=== PATIENT | female | born 1970 | race Caucasian/White ===

== ENCOUNTER 2023-05-27 01:14 | Day surgery (SDC) | payer BC, SELFPAY ==
[2023-05-19 10:10] VITALS: BMI 24.7
[2023-05-27 07:41] VITALS: BP 126/77; PULSE 64; RESP 16; TEMP 35.7; O2SAT 100
[2023-05-27] MEDS: LACTATED RINGERS 1,000 ML 150 ML IV CONT (07:49)
--- NOTE | 2023-05-27 08:02 | WPDANESEPPF ---
Anes - Initial Pre Proc Eval Procedure: Operation Date: 05/27/23 08:30 Proposed Procedures p Colonoscopy - Bill Tejada MD Date/Time: 05/27/23 08:02 Surgeon: Bill Tejada MD Pre Op Diagnosis: hx colon polyps Patient Data Age: 52 Gender: F Height: 1.6 m Weight: 64.6 kg Last Vital Signs Temp 96.2 F L 05/27/23 07:41 Pulse 64 05/27/23 07:41 Resp 16 05/27/23 07:41 BP 126/77 05/27/23 07:41 Pulse Ox 100 05/27/23 07:41 O2 Del Method Room Air 05/27/23 07:41 Allergies Allergy/AdvReac Type Severity Reaction Status Date / Time lobster Allergy Severe Anaphylaxis Verified 05/27/23 07:40 Penicillins Allergy Intermediate Rash Verified 05/27/23 07:40 Home Medications Medication Instructions Recorded Confirmed Type amlodipine 5 mg tablet 5 mg PO DAILY 03/31/23 05/27/23 History meloxicam 15 mg tablet 15 mg PO DAILY PRN Pain 03/31/23 05/27/23 History albuterol sulfate 90 mcg/actuation 1 puff inhalation Q4H PRN 05/10/23 05/27/23 Rx aerosol inhaler shortness of breath or wheezing #8.5 grams Patient hx anesthesia problems: none Family hx anesthesia problems: none Results Review: All pre-operative results and documents have been reviewed as part of the pre-operative evaluation. 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 Hypertension Lumbar disc disease Polyp of colon Scoliosis Surgical History Surgical History H/O oophorectomy Previous section Family History Family History (Updated 03/31/23 @ 09:39 by Dolores Sarkar CMA) Sibling Diabetes mellitus Social History Social History (Updated 03/31/23 @ 09:38 by Dolores Sarkar CMA) Smoking packs per day: 0.5 Smoking cigarettes per day: 10.0 Years smoked: 10 Smoking pack-years: 5.00 Smoking status: Former smoker Tobacco type: cigarettes Second hand tobacco smoke exposure: No Alcohol intake: current Drinks per week: 5 Alcohol use details: WINE Substance use: never Substance use type: does not use Lack of Transportation: No Lack of Food: Never True Current Housing: I Have Housing Concerned About Future Housing: No Difficulty Paying Gas/Electric Bills: No Difficulty Paying for Meds: No Currently Unemployed: No Education: Bachelor's Degree Difficulty w/ Childcare or Family Care: No Living arrangements: with family Occupation/Education: occupation Gender identity (if verbalized by the patient): Female Spiritual care concerns: No Anes - Eval Final PreProcedure Day of Procedure 05/27/23 08:02 Patient weight: normal Heart: regular rate and rhythm Lungs: clear to auscultation Airway: Mallampati scale class II Neurological: alert and oriented Last oral intake: >/= 8 hours ASA classification: II Emergent: no Anesthetic plan: proceed Anesthesia type and monitoring: general GIVS and standard monitoring Results Review: All pre-operative results and documents have been reviewed as part of the pre-operative evaluation. Informed Consent: The patient's anesthetic plan and its attendant risks and benefits were discussed with the patient/family/POA. Questions were solicited and answers provided to the satisfaction of the patient/family/POA.
--- NOTE | 2023-05-27 08:27 | PM.HPGS ---
History of Present Illness History of Present Illness Consent: Risks, benefits, and alternatives have been discussed and questions answered. Patient agrees to proceed with procedure. Chief complaint: hx colon polyps Narrative: Kelley Lanier is a 52 year old female with several polyps removed 07/2022 in [place] (largest in rectosigmoid, also used tattoo), besides she had 2 previous colonoscopies with polyps. Review of Systems Constitutional: Constitutional: Denies headache(s) and Denies weakness Eyes: Eyes: Denies blurry vision ENT: Reports Normal hearing present, Denies headache(s) and Denies neck pain Cardiovascular: Cardiovascular: Denies chest pain and Denies dyspnea Respiratory: Respiratory: Denies dyspnea Gastrointestinal: Gastrointestinal: Reports no additional gastrointestinal complaints Genitourinary: Genitourinary: Denies dysuria Musculoskeletal: Musculoskeletal: Denies neck pain Integumentary/Breasts: Skin/Breast: Denies dry skin Neurologic: Reports Normal hearing present, Denies headache(s) and Denies weakness Psychiatric: Psychiatric: Denies anxiety Endocrine: Endocrine: Denies change in body appearance Hematologic/Lymphatic: Hematologic/Lymphatic: Denies easy bleeding Allergic/Immunologic: Allergic/Immunologic: Denies urticaria PMF Past Medical History Medical History (Updated 03/31/23 @ 12:38 by Krysta Gutierrez PA-C) 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 Hypertension Lumbar disc disease Polyp of colon Scoliosis Surgical History Surgical History H/O oophorectomy Previous section Family History Family History (Updated 03/31/23 @ 09:39 by Dolores Sarkar CMA) Sibling Diabetes mellitus Social History Social History (Updated 03/31/23 @ 09:38 by Dolores Sarkar CMA) Smoking packs per day: 0.5 Smoking cigarettes per day: 10.0 Years smoked: 10 Smoking pack-years: 5.00 Smoking status: Former smoker Tobacco type: cigarettes Second hand tobacco smoke exposure: No Alcohol intake: current Drinks per week: 5 Alcohol use details: WINE Substance use: never Substance use type: does not use Lack of Transportation: No Lack of Food: Never True Current Housing: I Have Housing Concerned About Future Housing: No Difficulty Paying Gas/Electric Bills: No Difficulty Paying for Meds: No Currently Unemployed: No Education: Bachelor's Degree Difficulty w/ Childcare or Family Care: No Living arrangements: with family Occupation/Education: occupation Gender identity (if verbalized by the patient): Female Spiritual care concerns: No Meds Home Medications and Allergies Home Medications Medication Instructions Recorded Confirmed Type amlodipine 5 mg tablet 5 mg PO DAILY 03/31/23 05/27/23 History meloxicam 15 mg tablet 15 mg PO DAILY PRN Pain 03/31/23 05/27/23 History albuterol sulfate 90 mcg/actuation 1 puff inhalation Q4H PRN 05/10/23 05/27/23 Rx aerosol inhaler shortness of breath or wheezing #8.5 grams Allergies Allergy/AdvReac Type Severity Reaction Status Date / Time lobster Allergy Severe Anaphylaxis Verified 05/27/23 07:40 Penicillins Allergy Intermediate Rash Verified 05/27/23 07:40 Vital Signs Vital Signs - 24 hr 05/27/23 07:41 Temperature 96.2 F L Pulse Rate 64 Respiratory Rate 16 Blood Pressure 126/77 Pulse Oximetry 100 Oxygen Delivery Room Air Exam Const: General: comfortable and no acute distress HENMT: Face/Nose/Sinus: Normal nares present Eyes: General: appearance normal, both eyes and all related structures Neck: Neck: no JVD Resp: Auscultation: clear to auscultation bilaterally Cardio: Rate: regular rate Rhythm: regular rhythm GI: Inspection: non-distended GI Palp: Yes Soft to palpation Skin: General skin exam: normal color Neuro: General: gait normal Speech: normal
[2023-05-27 08:40] VITALS: BP 112/70; PULSE 68; RESP 14; O2SAT 100
[2023-05-27 08:50] VITALS: BP 122/83; PULSE 64; RESP 24; O2SAT 100
[2023-05-27 09:00] VITALS: BP 131/85; PULSE 59; RESP 21; O2SAT 99
== END 2023-05-27 09:07 | disposition home or self-care (01) ==
PROVIDERS: PCP Family Medicine; Visit Provider Internal Medicine Gastroenterology
PROC: 0DJD8ZZ Inspection of Lower Intestinal Tract, Via Natural or Artificial Opening Endoscopic (ICD-10-PCS; CPT 45378; principal; 2023-05-27 08:30)
DX: Z12.11 Encounter for screening for malignant neoplasm of colon (principal); D12.3 Benign neoplasm of transverse colon; K57.30 Diverticulosis of large intestine without perforation or abscess without bleeding; I10 Essential (primary) hypertension; Z79.51 Long term (current) use of inhaled steroids; Z87.891 Personal history of nicotine dependence
CPT/HCPCS: 45385; 88305; J2704; J7120

== ENCOUNTER → 2023-07-11 16:33 | Outpatient (CLI) | payer BC, SELFPAY ==
--- NOTE | ~2023-07-11 | XR_ITS ---
EXAMINATION: XR chest 2V Exam Date/Time: 07/11/2023 16:47 CDT HISTORY: R05.3 - Chronic cough Comparison: None. RESULT: Lines, tubes, and devices: None. Lungs and pleura: Diffuse reticular opacities. 2.4 cm nodular opacity projecting adjacent to the rig ht heart border without any correlate identified in the lateral view. Cardiomediastinal silhouette: Unremarkable. Other: No acute osseous or upper abdominal finding. IMPRESSION: Nodular opacity projecting adjacent to the right heart border. Comparison to outside studies can be m michael if available, otherwise consider low-dose noncontrast CT of the chest for further evaluation. Diffuse interstitial opacities may represent mild initial edema versus respiratory bronchiolitis Reviewed, dictated and finalized at location K. IMPRESSION: Nodular opacity projecting adjacent to the right heart border. Comparison to ou tside studies can be made if available, otherwise consider low-dose noncontrast CT of the chest for further evaluation. Diffuse interstitial opacities may represent mild initial edema versus respirat ory bronchiolitis
== END ==
PROVIDERS: PCP Physician Assistant Medical; Visit Provider Physician Assistant Medical
DX: R05.3 Chronic cough (principal); R91.8 Other nonspecific abnormal finding of lung field
CPT/HCPCS: 71046

== ENCOUNTER → 2023-07-14 09:51 | Outpatient (CLI) | payer BC, SELFPAY ==
--- NOTE | ~2023-07-14 | CT_ITS ---
EXAMINATION: CT diagnostic chest w con DATE: 07/14/2023 10:26 INDICATION: Chronic cough, lung nodule TECHNIQUE: Transaxial computed tomographic images of the chest were obtained after the administration of 75 cc of Omnipaque 350 intravenous contrast. The dose-length product (DLP) was 193.40 mGy-cm. Ite rative reconstruction was used. COMPARISON: 07/11/2023 FINDINGS: There is a prominent fat pad abutting the right heart which accounts for the finding in que stion on the comparison radiograph. There is a 3 mm nodule of the lingula. There is a 3 mm nodule of the right upper lobe. No pathologically enlarged thoracic lymph nodes are identified. The heart size is normal. There is moderate thoracic spondylosis. There is severe atrophy of the right kidney. IMPRESSION: 1. Prominent fat pad abutting the right heart border accounting for the radiographic finding in quest ion. 2. Small pulmonary nodules, likely old granulomatous disease. Reviewed, dictated and finalized at location F. IMPRESSION: 1. Prominent fat pad abutting the right heart border accounting for the radiogr aphic finding in question. 2. Small pulmonary nodules, likely old granulomatous disease.
== END ==
PROVIDERS: PCP Physician Assistant Medical; Visit Provider Physician Assistant Medical
DX: R05.3 Chronic cough (principal); R91.8 Other nonspecific abnormal finding of lung field
CPT/HCPCS: 71260; Q9967

== ENCOUNTER → 2023-10-03 12:49 | Outpatient (CLI) | payer BC, SELFPAY ==
--- NOTE | ~2023-10-03 | US_ITS ---
Renal-Bladder ultrasound Clinical History: Right renal atrophy Technique: Real-time sonographic imaging of the kidneys and urinary bladder was performed. Findings: The right kidney measures 6.6 cm in length and the left kidney measures 13.5 cm. There is n o hydronephrosis or renal calculus identified. Renal cortical echogenicity is within normal limits. N o renal mass lesion is identified. The urinary bladder is moderately distended at the time of this exam. No intraluminal echoes are iden tified. No abnormal wall thickening is seen. Impression: Relatively atrophic right kidney as compared to the left. No hydronephrosis. Reviewed, dictated and finalized at location . RNATIONAL GUEST COORDINATOR Impression: Relatively atrophic right kidney as compared to the left. No hydronephrosis.
== END ==
PROVIDERS: PCP Physician Assistant Medical; Visit Provider Internal Medicine Nephrology
DX: N26.1 Atrophy of kidney (terminal) (principal)
CPT/HCPCS: 76775

== ENCOUNTER 2024-02-22 13:30 | Emergency (ER) | payer BC, SELFPAY ==
--- NOTE | ~2024-02-22 | XR_ITS ---
EXAMINATION: XR chest 2V DATE: 02/22/2024 13:57 INDICATION: Chest congestion. Cough. TECHNIQUE: Frontal and lateral views of the chest were obtained. COMPARISON: Chest 2 views 07/11/2023, chest CT 07/14/2023 FINDINGS: There is no pneumonia, pleural effusion, or pneumothorax. The heart size is normal. IMPRESSION: 1. No acute cardiopulmonary disease. Reviewed, dictated and finalized at location A.
--- NOTE | 2024-02-22 13:35 | ED.URI ---
HPI - URI/Sore Throat General Chief Complaint: Upper Respiratory Infection Stated Complaint: congested Source: patient and RN notes reviewed Mode of arrival: ambulatory Limitations: no limitations History of Present Illness HPI Narrative: Patient is a 53-year-old female who presents to the [facility] with complaints of chest congestion, cough, and wheezing for the last couple days. She states that her daughter also has cold symptoms with congestion and cough. She reports ongoing chest congestion that continues to worsen. She denies chest pain but reports soreness from coughing. Denies difficulty breathing or shortness of breath. She woke up wheezing this morning and took an albuterol at home which helped. She also states that she has a mild sore throat. She denies recent fevers. Related Data Allergies Allergy/AdvReac Type Severity Reaction Status Date / Time lobster Allergy Severe Anaphylaxis Verified 02/22/24 13:38 Penicillins Allergy Intermediate Rash Verified 02/22/24 13:38 Review of Systems Review of Systems: CONSTITUTIONAL: Denies fever, chills, or sweats. EYES: Denies visual changes, redness, or discharge. ENT: Denies otalgia. Reports sore throat. CARDIOVASCULAR: Denies chest pain, palpitations, or edema. RESPIRATORY: Reports wheezing and cough but denies dyspnea. GASTROINTESTINAL: Denies abdominal pain, nausea, vomiting, or diarrhea. GENITOURINARY: Denies dysuria or hematuria. SKIN: Denies rash or itching. MUSCULOSKELETAL: Denies back pain, joint pain, or myalgia. NEUROLOGIC: Denies headache, numbness, or weakness. Pertinent positives per HPI. 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 Hypertension Lumbar disc disease Polyp of colon Scoliosis Surgical History Surgical History H/O oophorectomy Previous section Family History Family History Sibling Diabetes mellitus Social History Social History Smoking packs per day: 0.5 Smoking cigarettes per day: 10.0 Years smoked: 10 Smoking pack-years: 5.00 Smoking status: Former smoker Tobacco type: cigarettes Second hand tobacco smoke exposure: No Alcohol intake: current Drinks per week: 5 Alcohol use details: WINE Substance use: never Substance use type: does not use Lack of Transportation: No Lack of Food: Never True Current Housing: I Have Housing Concerned About Future Housing: No Difficulty Paying Gas/Electric Bills: No Difficulty Paying for Meds: No Currently Unemployed: No Education: Bachelor's Degree Difficulty w/ Childcare or Family Care: No Living arrangements: with family Occupation/Education: occupation Gender identity (if verbalized by the patient): Female Spiritual care concerns: No Comments At the time of my signature, I reviewed and agree with the nursing past medical, surgical, social, and family history. There is no relevant family history pertinent to the patient complaint. Exam Narrative: GENERAL: This is a well-nourished, well-developed patient, in no apparent distress. HEAD: normocephalic, atraumatic. EYES: PERRL. Sclera clear/white. Vision is grossly intact. EARS: External ears normal, auditory canals clear and without drainage, TMs normal without perforation. Hearing grossly intact. NOSE: External nose normal with no obvious nasal discharge, nares without redness, no rhinorrhea. THROAT: Mucous membranes moist, posterior pharynx clear. NECK: Neck supple, non-tender without lymphadenopathy, masses or thyromegaly. CARDIOVASCULAR: Regular rate and rhythm without murmurs, gallops, or rubs. RESPIRATORY: Clear to auscultation. Breath sounds equal bilaterally. No wheezes,
[2024-02-22 13:40] VITALS: BP 130/90; PULSE 68; RESP 16; TEMP 37; O2SAT 100
== END 2024-02-22 14:08 | disposition home or self-care (01) ==
PROVIDERS: Emergency Provider Nurse Practitioner; PCP Family Medicine
DX: J20.8 Acute bronchitis due to other specified organisms (principal); Z87.891 Personal history of nicotine dependence; I10 Essential (primary) hypertension; M51.36 Other intervertebral disc degeneration, lumbar region; M41.9 Scoliosis, unspecified
CPT/HCPCS: 71046; 99213; G0463

== ENCOUNTER 2024-04-13 11:38 | Outpatient (CLI) | payer BC, SELFPAY ==
--- NOTE | ~2024-04-13 | MM_ITS ---
EXAMINATION: MM screening meliton BI w arturo HISTORY: Screening TECHNIQUE: Craniocaudal and mediolateral oblique 3-D tomosynthesis images were obtained and synthetic 2-D images were generated. CAD analysis was submitted and interpreted. COMPARISON: No prior mammogram is available for comparison at this institution. BREAST PARENCHYMAL COMPOSITION: There are scattered areas of fibroglandular density. FINDINGS: There is no evidence of suspicious mass, calcification, or architectural distortion to sugg est malignancy in either breast. There has been no suspicious interval change. IMPRESSION: 1. No mammographic evidence of malignancy. 2. Recommend routine screening mammography in one year. BI-RADS Category 1: Negative Reviewed, dictated and finalized at location B.
== END 2024-04-13 11:39 | disposition home or self-care (01) ==
LOC: CHSIMG 11:39
PROVIDERS: PCP Family Medicine; Visit Provider Physician Assistant Medical
DX: Z12.31 Encounter for screening mammogram for malignant neoplasm of breast (principal)
CPT/HCPCS: 77063; 77067

== ENCOUNTER 2024-04-16 10:08 | Outpatient (CLI) | payer BC, SELFPAY ==
--- NOTE | ~2024-04-16 | XR_ITS ---
XR wrist RT min 3V Ordering provider: Eric Brown MD History: . M25.531 - Pain in right wrist, RADIAL SIDE PAIN, NO INJURY . Comparison: None. FINDINGS: BONES: No acute fracture or dislocation. No definite scaphoid fracture. 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 SOFT TISSUES: Normal. IMPRESSION: No acute osseous abnormality right wrist. 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 Reviewed, dictated and finalized at location A. IMPRESSION: No acute osseous abnormality right wrist. Osteoarthritic changes of the trapezioscaphoid and first carpometacarpal joints .
== END 2024-04-16 10:09 | disposition home or self-care (01) ==
LOC: ANHIMG 10:09
PROVIDERS: PCP Family Medicine; Visit Provider Plastic Surgery
DX: M19.031 Primary osteoarthritis, right wrist (principal)
CPT/HCPCS: 73110

== ENCOUNTER 2024-06-05 14:00 | Outpatient (RCR) | payer BC, SELFPAY ==
--- NOTE | 2024-05-07 15:53 | OTOPEVAL1 ---
Assessment and note entered by Mark Silva, JESSIKA/Liudmila, CHT Evaluation Information Assessment Status Evaluation Diagnosis (R) wrist stiffness and pain ICD-10 Condition Codes (OT) M25.531 Subjective Information Patient reports experiencing right wrist pain for about 6-12 months. She had right de Quervain's release on this wrist about 2 years ago. 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 She is left handed. She reports functional limitations with gripping, opening jars, and any activities that require wrist motion. She demonstrates limited ability to extend the wrist and reports it's just been like that for a while . She reports experiencing intermittent paresthesia in the thumb, index, and middle fingers. EMG scheduled for end of May. Reported Pain Level Pain Score - (R) wrist 4/10 at rest 7/10 with active wrist extension 8/10 with composite thumb flexion Assessment OT Clinical Summary Patient referred to OT with dx of right wrist pain . She presents with swelling, stiffness, and pain that limits functional use. Evaluation today was limited with distinguishing between joint pain vs. nerve pain due to pain with all motions. Unable to recreate paresthesia symptoms in the hand. Issued wrist and thumb ROM for HEP. Plan to proceed with treating the wrist as arthritic through use of modalities, therapeutic exercise, manual therapy, and HEP instruction and progression to facilitate optimal functional use of her right hand/UE. Plan of Care Interventions Therapeutic Exercise,Manual Therapy,Therapeutic Activities,Hot Pack/Cold Pack,Ultrasound,Paraffin These treatments will address the objective and functional deficits as defined above. The patient will be advanced safely and appropriately in order for the patient to progress towards his/her prior level of function. Additional exercises will be introduced and as well as a comprehensive home exercise program upon discharge, if needed, ?to ensure carryover of functional gains achieved in the clinic. This treatment plan has been reviewed and agreement upon by the patient.
--- NOTE | 2024-05-07 15:54 | OPREHPOC ---
Outpatient Therapy Plan of Care This is a Multidisciplinary Plan of Care that may contain components documented by all disciplines (PT, OT, and ST.) OT Problem 1 OT Problem #1 Knowledge Deficit OT Goal 1 Goal / Goal Update 1. Patient to be independent with instructed materials Target Visit 8 OT Problem 2 OT Problem #2 Pain OT Goal 1 Goal / Goal Update 1. Patient to report reduced pain in the right wrist, noting times of 0/10 pain. Target Visit 8 OT Problem 3 OT Problem #3 Impaired Flexibility OT Goal 1 Goal / Goal Update 1. Patient to increase (R) wrist active ROM: - extension to 50 - RD to 15 -UD to 20 2. patient to increase (R) thumb ROM as measured by being able to touch the thumb to the base of digit V. Target Visit 8 OT Problem 4 OT Problem #4 Impaired Strength OT Goal 1 Goal / Goal Update 1. Patient to be able to progress to gross wrist strengthening with 1 lb. free weight x10 reps. 2. Patient to be able to complete (R) cold work operator/pinch strengthening with red putty x5 minutes. Target Visit 8
--- NOTE | 2024-06-05 14:42 | OTOPDC ---
Assessment and note entered by Mark Silva, OTR/L, CHT OT Discharge Notification Diagnosis (R) wrist stiffness and pain ICD-10 Condition Codes (OT) M25.531 Subjective Information Patient reports therapy has helped with reducing the pain in her wrist. At the start of care she was regularly experiencing 4/10 pain and this has reduced to 2/10. She states it never gets lower than 2/10. She reports at worst the pain gets up to is 6/10 and this has reduced from experiencing 10/10 pain at times. Functionally she reports no changes, just that she experiences less pain with hand use. She feels as though her ROM is the same - difficulties moving into wrist extension and RD. She reports she continues to experience intermittent paresthesia. No night symptoms. She reports it could be positional. She did not have her EMG today because she was going to have to pay too much out of pocket for it. Wrist ROM measurements remained unchanged: flexion 65 deg[address] 5 deg[address] UD 15 deg. 2/10 pain with active wrist extension (improve from 7/10 at the start of care) 4/10 pain with wrist UD (unchanged from start of care) Thumb ROM: patient is able to oppose to all finger tips and slide to the base of V today. 3/10 pain with this. Improved from being 1 cm away from touching and was experiencing 8/10 pain with this. Assessment OT Clinical Summary Patient referred to OT with dx of right wrist pain . OT has been utilizing modalities and therapeutic exercise to facilitate reduced pain and improved functional use. At this time her wrist ROM has remained unchanged. Thumb flexion improved. She is experiencing less pain with ROM and use. Unable to recreate paresthesia symptoms today. Continued therapy is recommended, however, at this time the patient is concerned with getting a high bill. Discharging today due to insurance. Patient is independent with instructed materials.
== END 2024-06-05 15:33 | disposition home or self-care (01) ==
LOC: ANHGOSHOT 14:00
PROVIDERS: PCP Family Medicine; Visit Provider Plastic Surgery
DX: S63.501A Unspecified sprain of right wrist, initial encounter (principal)
CPT/HCPCS: 97018; 97035; 97110; 97140; 97166